=== PATIENT | male | born 1975 | race Caucasian/White ===

== ENCOUNTER 2021-12-10 20:05 | Emergency (ER) | payer OTHER ==
[2021-12-10 21:27] LABS: HEMOGLOBIN 11.1 gm/dl (14.0-17.5); RED BLOOD COUNT 3.34 M/UL (4.20-5.50); WHITE BLOOD COUNT 11.9 K/UL (4.5-11.0)
[2021-12-10 21:57] LABS: BUN/CREATININE RATIO 9 (0-10)
[2021-12-11] MEDS ORDERED: CHRONULAC20 GM/30 M PO (04:11)
[2021-12-11] MEDS ORDERED: LASIX20 MG PO (04:11)
[2021-12-11] MEDS ORDERED: ALDACTONE100 MG PO (04:11)
[2021-12-11 05:54] LABS: BODY FLUID SOURCE PERITONEAL; MONONUCLEAR CELLS 94 (75-100); POLYMORPHONUCLEAR % 6 (0-25); RBC (AUTOMATED) 300 (0-100000); WBC (AUTOMATED) 33 (0-500)
[2021-12-11 05:58] LABS: TOTAL PROTEIN, BODY FLUID 0.9 gm/dL
== END 2021-12-11 05:15 | disposition home or self-care (01) ==
LOC: ER1 20:05
PROVIDERS: Emergency Medicine; Physician Assistant
DX: K74.60 Unspecified cirrhosis of liver (principal); R18.8 Other ascites; I10 Essential (primary) hypertension; Z20.822 Contact with and (suspected) exposure to COVID-19
CPT/HCPCS: 71045; 80053; 80307; 81001; 82140; 82272; 82550; 82553; 82945; 83605; 83690; 83735; 83880; 84100; 84157; 84484; 85025; 85610; 85730; 86850; 86900; 86901; 87205; 89051; 93005; 96374; 96375; 96376; 99284; G0480; J1940; J2270; J2405; P9047; Q9967; U0002